=== PATIENT | female | born 1975 | race African-American/Black ===

== ENCOUNTER 2021-05-04 01:06 | Day surgery (SDC) | payer OTHER, SELFPAY ==
[2021-04-26 14:00] VITALS: BMI 37.5
--- NOTE | 2021-04-26 14:13 | PC.NURSE ---
Report to the Outpatient Waiting Room, entrance under the green pavilion located off [facility], at time 0600 on date 05/04/21. OR Time: 0730. - You and your visitor will be asked a series of questions to screen for COVID 19 for your protection. - A mask is required within the hospital. One visitor will be allowed to accompany the patient into the hospital. Patients visitor will be instructed to remain with patient at all times or leave the building. We will allow the visitor to come back to the postoperative area when patient is ready. Preoperative COVID Testing Requirements: No COVID Test needed if: (proof is required; if not received patient will have Rapid Test prior to entry) - Patient has received COVID Vaccine at least 14 days prior to procedure date or - Patient has positive COVID test result within last 90 days of surgery date. COVID Test needed if above criteria is not met Patients may have clear liquids (water, carbonated beverages, clear teas, apple juice) until 3 hours prior to surgery with a maximum of 20 ounces. - No food from midnight until time of surgery Take the following medications with a SIP of water the morning of surgery: AMLODIPINE Medications to discontinue per physician: N/A Date to take last dose: N/A Please no make-up, nail hungarian, hairspray, perfume, deodorant, or body powder the day of surgery. No jewelry (including any body piercings) or valuables the day of surgery, leave them at home. Please take a shower or bath the night before, or the morning of, surgery with an antibacterial soap. Wear comfortable, loose fitting clothing. - Jewelry must be removed prior to entering the operating room. Rings and piercings that are not removed may be cut off. - The hospital will not accept responsibility for valuables. - Please leave all valuables, including medications, at home the day of surgery. If you are going home after surgery, a licensed dump truck driver off highway must drive you home. - NO public transportation without another adult. - We recommend that an adult stay with you for 24 hours following discharge. - We also recommend that you do not drive, make important decision, drink alcoholic beverages, or take any drugs that were not prescribed by your health care provider for at least 24 hours after your discharge time. Follow any additional instructions given to you from your surgeon. Telephone instructions given to ALICIA NICOLE and asked if any additional questions and then verbalized understanding. Patient advised to call surgeon office or pre surgery nurse liaison [phone] if any additional questions.
--- NOTE | 2021-05-03 12:48 | WPDANESEPPF ---
Anes - Initial Pre Proc Eval Procedure: Operation Date: 05/04/21 07:30 Proposed Procedures p Bilateral Reduction Mammoplasty - Martinez Salinas MD Date/Time: 05/03/21 12:48 Surgeon: Martinez Salinas MD Pre Op Diagnosis: Micromastia Patient Data Age: 46 Gender: F Height: 1.57 m Weight: 93 kg Allergies Allergy/AdvReac Type Severity Reaction Status Date / Time amoxicillin Allergy Other Verified 05/04/21 06:54 tramadol [From Ultram] Allergy Vomiting Verified 05/04/21 06:54 Home Medications Medication Instructions Recorded Confirmed Type amlodipine 5 mg tablet 5 mg PO DAILY tablet 07/26/20 05/04/21 History hydrochlorothiazide 25 mg tablet 25 mg PO DAILY tablet 07/26/20 05/04/21 History docusate sodium 100 mg capsule 100 mg PO BID #14 cap 04/16/21 05/04/21 Rx hydrocodone 5 mg-acetaminophen 325 1 tablet PO Q6H PRN #30 tablet 04/16/21 05/04/21 Rx mg tablet ondansetron HCl 4 mg tablet 4 mg PO Q6H #30 tablet 04/16/21 05/04/21 Rx Patient hx anesthesia problems: none Family hx anesthesia problems: none Results Review: All pre-operative results and documents have been reviewed as part of the pre-operative evaluation. [facility] Past Medical History Medical History (Updated 05/03/21 @ 12:49 by Vasiliy Chung MD) Anxiety Asthma High blood pressure Migraine Surgical History Surgical History (Updated 07/26/20 @ 14:04 by Renuka Dey RN) History of appendectomy 1987 History of 2009 History of hysterectomy 2019 History of myomectomy 2006 Social History Social History (Updated 07/26/20 @ 14:04 by Renuka Dey RN) Smoking status: Never smoker Alcohol intake: current Drinks per week: 2 Alcohol use details: socially Substance use: never Substance use type: does not use Living arrangements: with family Additional living arrangements comments: CHILDREN Spiritual care concerns: No Anes - Eval Final PreProcedure Day of Procedure 05/03/21 12:48 Patient weight: obese Heart: regular rate and rhythm Lungs: clear to auscultation Airway: Mallampati scale class III Neurological: alert and oriented Last oral intake: >/= 8 hours ASA classification: III Emergent: no Anesthetic plan: proceed Anesthesia type and monitoring: general ETT (fglidescope intubation) and standard monitoring Results Review: All pre-operative results and documents have been reviewed as part of the pre-operative evaluation. Informed Consent: The patient's anesthetic plan and its attendant risks and benefits were discussed with the patient/family/POA. Questions were solicited and answers provided to the satisfaction of the patient/family/POA.
[2021-05-04] VITALS (12 sets, daily range): BP systolic 100–149; BP diastolic 59–93; PULSE 62–84; RESP 16–20; TEMP 35.9–36.3; O2SAT 92–100
[2021-05-04] MEDS: LACTATED RINGERS 1,000 ML 30 ML IV CONT ×3 (06:41→11:06)
[2021-05-04 06:44] LABS: Urine Cotinine NEGATIVE
[2021-05-04 07:09] LABS: Anion Gap 7 mmol/L (8-16); Blood Urea Nitrogen 12 mg/dL (7-17); Calcium 8.9 mg/dL (8.4-10.2); Carbon Dioxide 26 mmol/L (22-30); Chloride 105 mmol/L (98-107); Estimated CRCL calculation 83 ml/min; Estimated Glomerular Filt Rate > 60; Glucose 97 mg/dL (65-110); Potassium 3.6 mmol/L (3.4-5.0); Sodium 138 mmol/L (137-145)
--- NOTE | 2021-05-04 07:23 | WPDHPUPDATE1 ---
History and Physical Update Update Date/Time: 05/04/21 07:23 History and Physical has been reviewed, including an updated exam of the patient. There are NO changes in the patient's condition. Risks, benefits, and alternatives have been discussed and questions answered. Patient agrees to proceed with procedure.
[2021-05-04] MEDS: ceFAZolin 2 GM/D5W 50 ML 2 GM/50 ML BAG IVPB (07:34)
[2021-05-04] MEDS: TRANEXAMIC ACID 1,000MG/ISO100 1,000 MG/100 ML BAG 200 MG IVPB (07:38)
[2021-05-04] MEDS: LACTATED RINGERS IRRIG 1,000 ML, LIDOCAINE HCL 1% LOCAL INJ 50 ML, EPINEPHrine HCL INJ ... INFILTRATE (08:03)
--- NOTE | 2021-05-04 10:04 | P.OP_ITS ---
Procedure Note - Detailed Date of Procedure 05/04/21 Pre-op Diagnosis Micromastia Post-op Diagnosis same Procedure Performed Bilateral reduction mammaplasty Surgeon Martinez Salinas MD Findings Inverted T Free nipple graft Tissue removed: Right - 1465 grams Left - 1449 grams Description of Procedure She is here today for bilateral breast reduction. Previously and again today the risks, benefits, alternatives were discussed in extensive detail. I wanted her to be very realistic about the risks involved as well as expectations. We discussed aftercare and what to monitor for. She understands we can never guarantee final breast size and there will always be asymmetry. I was very upfront and honest about the risks of sensation change and even nipple loss (). Made sure answered all of her questions to her satisfaction today and consent was obtained. She was marked in the preoperative holding area with their verification. The patient was taken to the operating room placed supine on the operating table. Anesthesia was provided by anesthesiology. She was prepped and draped in a standard sterile fashion. A surgical time-out was taken. Stab incisions were made and I tumessed with a tumescent solution. I marked out the nipple-areolar complex at 42 mm. The NAC was excised just deep to dermis and kept in gauze soaked saline. I then removed the inferior portion of the breast as well as the central keel to get shape based on preoperative planning. At this point copiously irrigated with saline solution and verified a strict hemostasis. I reapproximated the pillars using a 2-0 PDS. I tailor tacked the breast into place with china. She was placed in a sitting position. I verified the nipple-areolar complex position based on preoperative markings, intraoperative measurements, and observation which were in full agreement. This nipple-areolar complex was marked at 42 mm in size. I then placed supine and de-epithelialized this. I defatted the NAC and was inset with 5-0 chromic and tie over bolster of xeroform / wet cotton. Bolster secured with 3-0 Nylon. I closed IMF deep with 1 strattafix. I closed the vertical incision with 3-0 Monocryl in the IMF with 3- 0 stratafix. Then everything was closed using a running subcuticular 4-0 Monocryl followed by Steri-Strips. A dressing was placed followed by surgical bra. Patient was awoke and taken to PACU without difficulty. All instrument sponge counts were correct at the end of the case. Estimated Blood Loss 75 Drains No Packing No Pathology yes (Bilateral breast tissue) Complications No immediate complications Condition stable Disposition PACU
[2021-05-04] MEDS: fentaNYL CITRATE INJ (*CRX) 100 MCG/2 ML VIAL 25 MCG IV PUSH ×4 (11:03→11:25)
[2021-05-04] MEDS: oxyCODONE HCL (*CRX) 5 MG TAB IR PO (12:58)
[2021-05-04] MEDS: ONDANSETRON INJ 4 MG/2 ML VIAL IV PUSH (12:59)
== END 2021-05-04 13:54 | disposition home or self-care (01) ==
PROVIDERS: Anesthesiology; PCP Internal Medicine; Visit Provider Surgery Plastic and Reconstructive Surgery
PROC: 0HBV0ZZ Excision of Bilateral Breast, Open Approach (ICD-10-PCS; CPT 19318; principal; 2021-05-04 07:30)
DX: N62 Hypertrophy of breast (principal); N60.32 Fibrosclerosis of left breast; N60.31 Fibrosclerosis of right breast; N60.41 Mammary duct ectasia of right breast; N64.4 Mastodynia; M25.511 Pain in right shoulder; M25.512 Pain in left shoulder; Z82.49 Family history of ischemic heart disease and other diseases of the circulatory system; I10 Essential (primary) hypertension; M54.2 Cervicalgia; E66.9 Obesity, unspecified; Z68.37 Body mass index [BMI] 37.0-37.9, adult; F41.9 Anxiety disorder, unspecified; J45.909 Unspecified asthma, uncomplicated; R03.0 Elevated blood-pressure reading, without diagnosis of hypertension; G89.29 Other chronic pain
CPT/HCPCS: 19318; 80048; 80307; 88305; A9270; J0171; J0690; J1100; J1170; J2250; J2405; J2704; J2710; J3010; J7120

== ENCOUNTER 2021-05-27 13:02 | Emergency (ER) | payer OTHER, SELFPAY ==
--- NOTE | ~2021-05-27 | CT_ITS ---
EXAMINATION: CTA chest PE protocol DATE: 05/27/2021 14:28 INDICATION: Shortness of breath. Postoperative from breast reduction surgery 3 weeks ago TECHNIQUE: Computed tomography angiography (CTA) of the chest was performed with 100 mL Omnipaque-350 intravenous contrast timed to evaluate the pulmonary arteries. Coronal maximum intensity projection 3D-reconstructions were created by the technologist. Automated exposure control and iterative reconst ruction technique were employed. Exam dose: 626.11 mGy-cm total exam DLP. COMPARISON: None. FINDINGS: There is diagnostic contrast enhancement of the pulmonary arteries and no evidence of pulmo nary embolism. No thoracic aortic aneurysm or dissection. Normal heart size. No pericardial or pleural effusion. No hilar or mediastinal mass lesion or lymphad enopathy. The lungs are clear of infiltrate or consolidation or mass density. Normal morphology of the adrenal glands. Included skeletal structures are unremarkable. There is mild to moderate degenerative spurring of the thoracic spine. IMPRESSION: No evidence of pulmonary embolism Reviewed, dictated and finalized at [facility]. Reviewed, dictated and finalized at [facility].
[2021-05-27 13:16] VITALS: BP 132/84; PULSE 66; RESP 16; TEMP 36.8; O2SAT 100
[2021-05-27 13:45] LABS: Basophils Percent Auto 0.4 % (0.2-1.2); Eosinophils Absolute Auto 0.2 K/mm3 (0-0.3); Eosinophils Percent Auto 2.9 % (0-4.4); Hematocrit 36.2 % (37.0-47.0); Immature Granulocyte Absolute 0.01 K/mm3 (0.00-0.031); Immature Granulocyte Percent A 0.1 % (0-0.5); Lymphocytes Absolute Auto 2.23 K/mm3 (0.9-3.2); Lymphocytes Percent Auto 32.7 % (18.3-44.2); Mean Corpuscular HGB Conc 33.1 g/dl (32-36); Mean Corpuscular Hemoglobin 27.7 pg (26-34); Mean Corpuscular Volume 83.6 fl (80-100); Mean Platelet Volume 8.3 fl (7.4-10.4); Monocytes Absolute Auto 0.5 K/mm3 (0.1-0.6); Monocytes Percent Auto 7.6 % (2.6-8.5); Neutrophils Absolute Auto 3.8 K/mm3 (1.3-6.7); Neutrophils Percent Auto 56.3 % (45.5-73.1); Platelet Count Result 496 k/mm3 (150-375); Red Blood Count 4.33 M/mm3 (4.2-5.4); Red Cell Distribution Width 14.6 % (11.5-14.5); White Blood Count 6.8 K/mm3 (4.5-10.0)
--- NOTE | 2021-05-27 13:51 | ED.GENADULT ---
HPI - General Adult General Chief complaint: Recheck/Abnormal Lab/Rx Stated complaint: swelling after surgery Time Seen by Provider: 05/27/21 13:21 History of Present Illness HPI narrative: Patient is a 46-year-old female who presents ER with shortness of breath. Patient recently underwent breast reduction by Dr. Geiger. Her last few days she has been having exertional dyspnea that is abnormal for her. No cough or hemoptysis. No lower extremity swelling or calf pain. She has a father who has history of DVT. She has not had blood clots previously. Referred here for PE rule out. Patient denies any issues with her surgical scars. No redness or drainage. Patient has mild discomfort with deep breath in her chest and back. She has been taking [id number] pain medication with mild relief. Related Data Home Medications Medication Instructions Recorded Confirmed amlodipine 5 mg tablet 5 mg PO DAILY tablet 07/26/20 05/04/21 hydrochlorothiazide 25 mg tablet 25 mg PO DAILY tablet 07/26/20 05/04/21 Allergies Allergy/AdvReac Type Severity Reaction Status Date / Time amoxicillin Allergy Other Verified 05/04/21 06:54 tramadol [From Ultram] Allergy Vomiting Verified 05/04/21 06:54 Review of Systems Review of Systems: All systems reviewed & are unremarkable except as noted in HPI and below Constitutional: Constitutional: Denies chills, Denies fever(s) and Denies weakness ENT: Denies nasal congestion and Denies sore throat Cardiovascular: Cardiovascular: Reports chest pain, Denies rapid heart rate and Denies radiating jaw, neck or arm pain Respiratory: Respiratory: Denies cough, Reports dyspnea and Denies wheezing Gastrointestinal: Gastrointestinal: Denies abdominal pain, Denies nausea and Denies vomiting Integumentary/Breasts: Skin/Breast: Reports breast pain (Postoperative), Denies erythema and Denies rash PMFSH Past Medical History Medical History (Updated 05/27/21 @ 16:32 by Anurag Madsen MD) Anxiety Asthma High blood pressure Migraine Surgical History Surgical History (Updated 05/27/21 @ 13:53 by Anurag Madsen MD) History of appendectomy 1987 History of bilateral breast reduction surgery History of 2009 History of hysterectomy 2019 History of myomectomy 2006 Social History Social History (Updated 07/26/20 @ 14:04 by Renuka Dey RN) Smoking status: Never smoker Alcohol intake: current Drinks per week: 2 Alcohol use details: socially Substance use: never Substance use type: does not use Additional living arrangements comments: CHILDREN Spiritual care concerns: No Exam Narrative: GENERAL: Well-appearing, well-nourished, and in no acute distress. HEAD: Normocephalic, atraumatic. NECK: Supple. CHEST: Clear to auscultation. No respiratory distress. HEART: Regular rate and rhythm. Normal peripheral pulses. ABDOMEN: Soft, nontender, nondistended, normal active bowel sounds. EXTREMITIES: Normal range of motion. No edema. SKIN: Warm, dry, no rash. NEURO: Alert and oriented x3. PSYCH: Normal mood and affect. Course Course Emergency Course: Patient informed results. No evidence of PE. Discharge home. Vital Signs Vital signs: Vital Signs Temperature 98.2 F 05/27/21 13:16 Pulse Rate 66 05/27/21 13:16 Respiratory Rate 16 05/27/21 13:16 Blood Pressure 132/84 05/27/21 13:16 Pulse Oximetry 100 05/27/21 13:16 Temperature 98.2 F 05/27/21 13:16 Pulse Rate 66 05/27/21 13:16 Respiratory Rate 16 05/27/21 13:16 Blood Pressure 138/88 05/27/21 15:17 Pulse Oximetry 100 05/27/21 15:17 Medical Decision Making Vital Signs Vital Signs: Vital Signs Temperature 98.2 F 05/27/21 13:16 Pulse Rate 66 05/27/21 13:16 Respiratory Rate 16 05/27/21 13:16 Blood Pressure 132/84 05/27/21 13:16 Pulse Oximetry 100 05/27/21 13:16 Temperature 98.2 F 05/27/21 13:16 Pulse Rate 66 05/27/21 1
[2021-05-27 13:55] LABS: Partial Thromboplastin Time 31.8 SECONDS (22.3-36.8)
[2021-05-27 13:57] LABS: Alanine Aminotransferase 21 U/L (4-35); Albumin Level 4.1 g/dL (3.5-5.1); Alkaline Phosphatase 75 U/L (38-126); Anion Gap 8 mmol/L (8-16); Aspartate Amino Transferase 27 U/L (14-36); Bilirubin,Total 0.2 mg/dL (0.2-1.3); Blood Urea Nitrogen 13 mg/dL (7-17); Calcium 9.1 mg/dL (8.4-10.2); Carbon Dioxide 27 mmol/L (22-30); Chloride 104 mmol/L (98-107); Estimated CRCL calculation 67 ml/min; Estimated Glomerular Filt Rate > 60; Glucose 92 mg/dL (65-110); Potassium 3.6 mmol/L (3.4-5.0); Sodium 139 mmol/L (137-145)
[2021-05-27] MEDS: fentaNYL CITRATE INJ (*CRX) 100 MCG/2 ML VIAL 50 MCG IV PUSH (14:03)
[2021-05-27 14:09] LABS: NT Pro B Type Natriuretic Pept 34 pg/mL (5-100); Troponin I < 0.012 ng/mL (0.000-0.034)
[2021-05-27 15:17] VITALS: BP 138/88; O2SAT 100
[2021-05-27 17:10] VITALS: BP 149/99; PULSE 70; RESP 16; O2SAT 100
== END 2021-05-27 17:13 | disposition home or self-care (01) ==
PROVIDERS: Emergency Provider Emergency Medicine
DX: R06.00 Dyspnea, unspecified (principal); F41.9 Anxiety disorder, unspecified; J45.909 Unspecified asthma, uncomplicated; I10 Essential (primary) hypertension
CPT/HCPCS: 36415; 71275; 80053; 83880; 84484; 85025; 85610; 85730; 96374; 99284; J3010; Q9967